=== PATIENT | male | born 1965 | race Caucasian/White ===

== ENCOUNTER 2017-05-03 21:08 | Observation (INO) | payer BC ==
[~2017-05-03] VITALS: Ht 177.8 cm; Wt 57.5 kg
[~2017-05-03 21:08] MED LIST: ASPIRIN325 MG PO; LANTUS 3 M100 UNITS1 SC; NOVOLOG 10100 UNITS/ SC; NOVOLOG100 UNIT/1 SQ
[2017-05-03 21:56] LABS: HEMATOCRIT 39.1 % (38.0-50.0); MCH 29.9 PG (29.0-34.0); MCHC 34.5 G/DL (30.0-36.0); MCV 86.7 FL (86-99); MEAN PLAT.VOLUME 9.1 uM^3 (9.0-12.4); PLATELET COUNT 299 K/uL (156-360); RBC DIS.WIDTH-CV 12.1 % (11.8-14.6); RBC DIS.WIDTH-SD 38.8 % (39-53); RED BLOOD COUNT 4.51 M/uL (4.00-5.50); WHITE BLOOD COUNT 21.7 K/uL (4.1-10.2)
[2017-05-03 22:06] LABS: CHLORIDE 100 mEq/L (99-109); POTASSIUM 4.4 mEq/L (3.7-5.4); SODIUM 135 mEq/L (136-147)
[2017-05-03 22:08] LABS: GLUCOSE 205 mg/dL (70-99)
[2017-05-03 22:09] LABS: ANION GAP 14 MEQ/L (2-14)
[2017-05-03 22:12] LABS: GFR ESTIMATE (CALCULATED) 52 mL/min/
[2017-05-03 22:13] LABS: UREA NITROGEN (BUN) 46 mg/dL (9-23)
[2017-05-03 22:16] LABS: BILIRUBIN NEGATIVE; BLOOD NEGATIVE; COLOR YELLOW ((YELLOW)); GLUCOSE (STRIP) 50; KETONES 20; LEUKOCYTES NEGATIVE; NITRITE NEGATIVE; PROTEIN (STRIP) 30; SPECIFIC GRAVITY 1.023 (1.000-1.030); UROBILINOGEN 0.2 MG/DL (0.2-1.0)
[2017-05-03 22:19] LABS: ADD MIUA? NO
[2017-05-03 22:50] LABS: CARBON DIOXIDE (BICARBONATE) 26.7 MEQ/L (20-31)
[2017-05-04] MEDS ORDERED: INSULIN PUMP MC (00:01)
[2017-05-04] MEDS ORDERED: TYLENOL EXTRA500 MG PO (00:01)
[2017-05-04] MEDS ORDERED: ONE-A-DAY ESSE1 EAC1 PO (00:01)
[2017-05-04 01:29] LABS: POINT-OF-CARE METER ID UU13113747
[2017-05-04 02:23] VITALS: BP 128/81
[2017-05-04 09:10] LABS: HEMATOCRIT 32.7 % (38.0-50.0); MCH 29.7 PG (29.0-34.0); MCHC 33.6 G/DL (30.0-36.0); MCV 88.4 FL (86-99); PLATELET COUNT 239 K/uL (156-360); RBC DIS.WIDTH-CV 12.4 % (11.8-14.6); RBC DIS.WIDTH-SD 39.9 % (39-53); WHITE BLOOD COUNT 15.1 K/uL (4.1-10.2)
[2017-05-04 09:13] LABS: ALKALINE PHOSPHATASE 72 IU/L (3-129); ANION GAP 6 MEQ/L (2-14); CHLORIDE 105 MEQ/L (99-109); GFR ESTIMATE (CALCULATED) > 59 mL/min/; LIPASE 10 U/L (1.0-51.0); SAMPLE HEMOLYSIS CHECK 0; SAMPLE ICTERIC CHECK 0; SAMPLE LIPEMIA CHECK 0; SODIUM 134 MEQ/L (136-147); TOTAL BILIRUBIN 0.5 MG/DL (0.0-1.0); UREA NITROGEN (BUN) 31 mg/dL (9-23)
[2017-05-04 09:30] LABS: GLUCOSE 73 mg/dL (70-99)
[2017-05-04 09:43] VITALS: BP 131/71
[2017-05-04] MEDS ORDERED: AMOX TR-K CLV1 EAC4 PO (10:47)
[2017-05-04] MEDS ORDERED: LORATADINE10 M2 PO (10:47)
[2017-05-04] MEDS ORDERED: ZOFRAN4 MG PO (10:48)
== END 2017-05-04 11:41 | disposition home or self-care (01) ==
LOC: EME 21:08 → EDOF 05-04 00:14 → ENRESERV 05-04 00:21 → 5WEST 05-04 02:10
PROVIDERS: Internal Medicine; Physician Assistant
DX: R11.2 Nausea with vomiting, unspecified (principal); J32.9 Chronic sinusitis, unspecified; R10.9 Unspecified abdominal pain; N17.9 Acute kidney failure, unspecified; D64.9 Anemia, unspecified; E10.65 Type 1 diabetes mellitus with hyperglycemia; E86.0 Dehydration; I10 Essential (primary) hypertension; F17.200 Nicotine dependence, unspecified, uncomplicated; Z79.4 Long term (current) use of insulin; Z96.41 Presence of insulin pump (external) (internal); Z66 Do not resuscitate
CPT/HCPCS: 71020; 74176; 80048; 80053; 81003; 82010; 82803; 82948; 83690; 85027; 99202; 99281; 99285; G0378; J2405; J7030